=== PATIENT | female | born 1985 | race Caucasian/White ===

== ENCOUNTER → 2017-03-11 | Outpatient (CLI) | payer BC ==
--- NOTE | 2017-03-11 08:56 | KCIC ---
Examination: Ultrasound abdomen limited HISTORY: History of right upper quadrant pain after meals COMPARISON: None available FINDINGS: There is a large gallstone identified within the gallbladder. The gallbladder wall thickness measures 1.6 cm The visualized pancreas grossly appears unremarkable. The visualized aorta, IVC are patent. There is mild increased echogenicity noted throughout the liver likely steatosis. The right lobe of the liver measures 14.9 cm. The common bile duct measures 3.6 mm in transverse dimension. IMPRESSION: 1. Cholelithiasis. 2. Mild hepatic steatosis. Electronically signed by: Bladimir Mckeon MD (03/11/2017 8:53 AM) [id number]
== END | disposition home or self-care (01) ==
LOC: KCIC US 08:03
PROVIDERS: ATTEND Obstetrics & Gynecology
DX: K80.20 Calculus of gallbladder without cholecystitis without obstruction (principal); K76.0 Fatty (change of) liver, not elsewhere classified
CPT/HCPCS: 76705

== ENCOUNTER → 2017-03-27 | Day surgery (SDC) | payer BC ==
[~2017-03-27] VITALS: Ht 165.1 cm; Wt 73.0 kg
[~2017-03-27] MED LIST: BUPIVACAINE-EPI 0.25%-1:200000 MPF 30 ML VIAL. ONE; DESFLURANE 31 TO 60 MINUTES IH ONE; DESFLURANE UP TO 15 MINUTES. IH ONE; DEXAMETHASONE SOD PHOS 20 MG/5 ML VIAL. ONE; ESOM20CA PO; FAMOTIDINE 20 MG/2 ML VIAL ONE; FLUO40CA2 PO; GLYCOPYRROLATE 1 MG/5 ML VIAL. ONE; HYDROmorphone 2 MG/ML VIAL IV PRN; IOHEXOL 300 MG/ML 50 ML VIAL. ONE; KETOROLAC 30 MG/ML INJ FOR OR. INJ ONE; LIDOCAINE 1% PF 2 ML VIAL. ID PRN; LIDOCAINE 2% PF Vial for OR 5 ML VIAL. ONE; MIDAZOLAM HCL/PF 2 MG/2 ML VIAL. ONE; MORPHINE SULFATE 4 MG/ML DISP.SYRIN. IV PRN; NEOSTIGMINE METHYLSULFATE 5 MG/5 ML SYRINGE. ONE; ONDANSETRON PF 4 MG/2 ML VIAL. IV PRN; ONDANSETRON PF 4 MG/2 ML VIAL. ONE; OXYC-323 PO; PHENYLEPHRINE in 0.9% NACL PF 1 MG/10 ML DISP.SYRIN. IV ONE; POLY17PO29 PO; PROCHLORPERAZINE 10 MG/2 ML VIAL. IV PRN; PROPOFOL 20 ML IV ONE; ROCURONIUM 100 MG/10 ML VIAL. ONE; SURGICEL HEMOSTAT 4X8 EACH. ONE; [UNRECOGNIZED DRUG - CODE] PO; fentaNYL PF VIAL 100 MCG/2 ML VIAL IV PRN; fentaNYL PF VIAL 100 MCG/2 ML VIAL ONE; oxyCODONE/APAP 5/325 1 TAB TABLET PO ONE
[2017-03-27 09:55] LABS: NEG OBC UR NEG; POS OBC UR POS
[2017-03-27] MEDS: IV RINGERS,LACTATED 1000ML 1,000 ML IV SCH ×2 (10:06→13:23)
--- NOTE | 2017-03-27 13:09 | PDOC4 ---
Operative Note Operative Note Date: 03/27/2017 Preoperative diagnosis: Biliary dyskinesia Postoperative diagnosis: Same Procedure: Laparoscopic cholecystectomy Surgeon: Steve Specimen: Gallbladder Dictation: Patient is a 31-year-old female with right upper quadrant abdominal pain she's undergone ultrasound HIDA scan continues to have right upper quadrant abdominal pain her HIDA scan was borderline the procedure of laparoscopic cholecystectomy was explained to the patient in detail was benefits were also discussed including bleeding infection and tense possibly necessitating further or open operations also discussed this may not completely resolve her issues she seems understanding gave both verbal and written consent had procedure performed. Patient was taken to the operating room placed in the supine position general anesthesia was initiated once patient was asleep and intubated her abdomen was prepped and draped in usual sterile fashion using ChloraPrep. An area just below the umbilicus injected with quarter percent Marcaine with epinephrine and incision was made with 11 blade scalpel and a varies needle was placed within the abdomen pneumoperitoneum was achieved once this complete a 11 mm port was placed in a fibromata camera was used to inspect the abdomen no other at maladies were noted. 5 mm port was placed in the epigastrium second final meter port was placed in the right upper quadrant along with a second port all under direct visualization the dome of the gallbladder was grasped retracted cephalad the infundibulum and gallbladder stress retracted laterally exposing the triangle. The adherent tissues of the triangle are taken down with blunt dissection exposing the cystic duct and cystic artery both were doubly clipped and transected the gallbladder was taken off the liver with hook left cautery placed in Endo Catch bag and removed from the umbilicus. Right upper quadrant was irrigated and suctioned dry hemostasis didn't be appropriate and the pneumoperitoneum was reduced all ports removed fascial defect at the umbilicus closed [id number] 0 Vicryl suture and the skin was approximated all port sites 4 subcuticular Monocryl Mastisol Steri- Strips and Band-Aids were applied Patient was waken expanded in the operative room taken to recovery in stable condition all sponge instrument needle counts listed as correct. Blood loss 20 mL JACQUE MURO MD Mar 27, 2017 13:09
--- NOTE | 2017-03-27 13:10 | DISCH ---
DISCHARGE INSTRUCTIONS Condition on Discharge Condition on Discharge: Stable Activity After Discharge Activity Instructions for Disc: Activity as tolerated Other activity instructions: No liftinG >20LBS FOR 2 WEEKS Diet after Discharge Diet after Discharge: Low Fat Wound Incision Care Other wound/incision instructi: May shower in 24 hours Contacting the after DC Call your doctor for: If your condition worsens Follow-Up Follow up with: Dr Muro in 2 weeks JACQUE MURO MD Mar 27, 2017 13:10
[2017-03-27] MEDS: fentaNYL PF VIAL 100 MCG/2 ML VIAL IV PRN ×2 (13:23→13:39)
[2017-03-27 14:18] VITALS: BP 102/58
--- NOTE | 2017-03-31 12:49 | PATHOLOGY ---
PATHOLOGY REPORT * * * * * * * * FINAL DIAGNOSIS: Gallbladder, laparoscopic cholecystectomy: - Cholelithiasis. - Chronic cholecystitis. COMMENT: There is no evidence of malignancy. (JPM:; 03/31/2017) REPORT ELECTRONICALLY SIGNED BY: Guanaco Reyes M.D. DATE/TIME: 03/31/2017 12:49 * * * * * * * * GROSS PATHOLOGY: Received in formalin labeled "[place], gallbladder and contents," is a 7.4 x 2.5 x 1.9 cm, previously punctured gallbladder with graybluish, wrinkled, and slightly vascular serosal surfaces. Opening the gallbladder reveals dark leal, velvety mucosa and an average wall thickness of 0.2 cm. Calculi are present, measuring 2.0 x 1.1 x 1.2 cm in maximum dimension, possessing a dark leal color, and feeling firm to the touch. No masses are noted grossly. Platform Architect sections from the body and fundus are submitted along with the proximal margin in cassette A1. (TSD; 03/28/2017) INITIAL CPT CODE(S): A; 63333 Professional services [place] [address] Technical services performed by [facility] at [address] [place] [address], [facility] [address] [address]. SPECIMEN(S) RECEIVED: A.Gallbladder and contents CLINICAL HISTORY: Chronic cholecystitis with calculus PATIENT: NANDO MESA /AGE: 1104/24/1985 (Age: 31) PATIENT #: [id number] ALT CASE #: SPECIMEN COLLECTION DATE: 03/27/2017 SPECIMEN RECEIVED DATE: 03/27/2017 [facility] - [address] [place] [address] - PHONE: [phone] * * * END OF REPORT * * *
== END | disposition home or self-care (01) ==
LOC: SURG 09:18
PROVIDERS: ATTEND Surgery
DX: K82.8 Other specified diseases of gallbladder (principal); K21.9 Gastro-esophageal reflux disease without esophagitis; F41.9 Anxiety disorder, unspecified; F32.9 Major depressive disorder, single episode, unspecified; F17.200 Nicotine dependence, unspecified, uncomplicated; Z72.0 Tobacco use; Z72.89 Other problems related to lifestyle
CPT/HCPCS: 47562; 81025; J0690; J0780; J1100; J1885; J2250; J2405; J2704; J2710; J3010; J3490; J7030; J7120; Q9967; S0028; J2370; J2001

== ENCOUNTER → 2017-11-21 | Outpatient (CLI) | payer BC | END | disposition home or self-care (01) | LOC: KCIC CT 11:53 | DX: H71.91 Unspecified cholesteatoma, right ear (principal) | CPT/HCPCS: 70480 ==